=== PATIENT | male | born 1950 | race Caucasian/White ===

== ENCOUNTER → 2018-03-04 | Outpatient (CLI) | payer OTHER | END | disposition home or self-care (01) | LOC: NUCLEAR 12:53 | DX: M85.80 Other specified disorders of bone density and structure, unspecified site (principal); M81.0 Age-related osteoporosis without current pathological fracture ==

== ENCOUNTER 2020-11-14 08:00 | Outpatient (CLI) | payer OTHER | END 2020-11-14 08:30 | disposition home or self-care (01) | LOC: PPH VACUNA 08:00 | PROVIDERS: ATTEND Emergency Medicine Pediatric Emergency Medicine | DX: Z23 Encounter for immunization (principal) ==

== ENCOUNTER 2021-02-16 07:22 | Emergency (ER) | payer OTHER ==
[~2021-02-16] VITALS: Ht 165.1 cm; Wt 68.0 kg
[2021-02-16] MEDS ORDERED: KETO10TA2 PO (09:47)
== END 2021-02-16 10:06 | disposition home or self-care (01) ==
LOC: ER 07:22
DX: M25.561 Pain in right knee (principal); R60.0 Localized edema

== ENCOUNTER 2021-02-19 13:19 | Outpatient (CLI) | payer OTHER ==
[~2021-02-19 13:19] MED LIST: KETO10TA2 PO
== END 2021-02-19 13:21 | disposition home or self-care (01) ==
LOC: NUCLEAR 13:19
PROVIDERS: ATTEND Orthopaedic Surgery
DX: I82.493 Acute embolism and thrombosis of other specified deep vein of lower extremity, bilateral (principal)